=== PATIENT | female | born 1990 | race Caucasian/White ===

== ENCOUNTER 2021-04-18 08:00 | Outpatient (CLI) | payer OTHER ==
[2021-04-18 16:14] LABS: MUDS CUTOFF CONCENTRATIONS CUTOFF CONC BELOW:
[2021-04-18 16:26] LABS: BILIRUBIN,URINE NEGATIVE (NEGATIVE); GLUCOSE, URINE (UA) NEGATIVE (NEGATIVE); KETONES,URINE (UA) NEGATIVE (NEGATIVE); LEUKOCYTE ESTERASE, URINE TRACE (NEGATIVE); NITRITE,URINE NEGATIVE (NEGATIVE); OCCULT BLOOD,URINE NEGATIVE (NEGATIVE); PH,URINE 6.5 PH (5.0-7.5); PROTEIN,URINE NEGATIVE (NEGATIVE); UROBILINOGEN,URINE 0.2 (NORMAL) E.U./dL (NORMAL)
[2021-04-18 16:31] LABS: CLARITY,URINE CLEAR (CLEAR)
[2021-04-18 16:46] LABS: BACTERIA,URINE Few /HPF (None Seen); RBC,URINE 0-5 /HPF (0-5); SQUAMOUS EPITHELIAL CELL,UR FEW Squamous (<= Few); WBC,URINE 0-3 /HPF (0-5)
[2021-04-18 16:57] LABS: AMPHETAMINE SCREEN,URINE NEGATIVE (NEGATIVE); BARBITURATE SCREEN,UR NEGATIVE (NEGATIVE); BENZODIAZEPINES SCREEN, URINE NEGATIVE (NEGATIVE); COCAINE SCREEN URINE NEGATIVE (NEGATIVE); METHADONE SCREEN, URINE NEGATIVE (NEGATIVE); METHAMPHETAMINES SCREEN, URINE NEGATIVE (NEGATIVE); OPIATE SCREEN, URINE NEGATIVE (NEGATIVE); OXYCODONE SCREEN, URINE NEGATIVE (NEGATIVE); PROPOXYPHENE SCREEN, URINE NEGATIVE (NEGATIVE); THC CANNABINOID SCREEN, URINE NEGATIVE (NEGATIVE); TRICYCLIC ANTIDEPRESSANT,URINE NEGATIVE (NEGATIVE)
== END 2021-04-18 23:59 | disposition home or self-care (01) ==
LOC: LAB.WC 08:00
PROVIDERS: ATTEND Nurse Practitioner Obstetrics & Gynecology
DX: Z32.01 Encounter for pregnancy test, result positive (principal)
CPT/HCPCS: 80306; 81001; 87086

== ENCOUNTER 2021-04-29 07:58 | Outpatient (CLI) | payer OTHER ==
--- NOTE | 2021-04-29 14:31 | Ultrasound Report ---
PROCEDURE: OB First Trimester INDICATIONS: +PREG TEST OUTSIDE/PRIOR DATING DATA: Last menstrual period (LMP): 01/29/2021. LMP-based estimated date of delivery (ARIEL): 11/05/2021. First dating scan (date and location): 04/29/2021, [facility]. Estimated date of delivery (ARIEL) from first dating scan: 10/31/2021 The below data below was generated using the ultrasound ARIEL of 10/31/2021 TECHNIQUE: Real-time scanning was performed of the fetus and maternal pelvic organs, with image documentation. COMPARISON: None FINDINGS: Single living and the first trimester/beginning of second trimester intrauterine without evidence of complications. Embryo: [place]-rump length measures 7.8 cm, 13 weeks 4 days. Heart rate: 160 bpm Measurement variability in dating: +/- 4 weeks by LMP, +/- 7 days by mean sac diameter (use before 6 weeks gestation if crown-rump length not able to be measured), +/- 5 days by crown-rump length (6-12 weeks gestation). Maternal organs: There is a right ovarian corpus luteum. IMPRESSION: Living intrauterine measuring 13 weeks 4 days Reviewed by: Kevin Cochran MD on 04/29/2021 1:30 PM [facility] Approved by: Kevin Cochran MD on 04/29/2021 1:30 PM [facility] Station ID: [id number]
== END 2021-04-29 07:59 | disposition home or self-care (01) ==
LOC: DI 07:58
PROVIDERS: ATTEND Nurse Practitioner Obstetrics & Gynecology
DX: Z36.89 Encounter for other specified antenatal screening (principal); Z32.01 Encounter for pregnancy test, result positive

== ENCOUNTER 2021-05-06 09:47 | Outpatient (CLI) | payer OTHER ==
[2021-05-06 10:20] LABS: BASOPHILS % (AUTO) 0.2 %; EOSINOPHILS % (AUTO) 0.2 %; HCT - HEMATOCRIT 39.3 % (37.0-47.0); HGB - HEMOGLOBIN 13.3 g/dL (12.0-16.0); LYMPHOCYTES # (AUTO) 1.9 10^3/uL (1.5-3.5); LYMPHOCYTES % (AUTO) 15.7 %; MEAN CORPUSCULAR HEMOGLOBIN 30.9 pg (27.0-31.0); MEAN CORPUSCULAR HGB CONC 33.8 g/dL (32.0-36.0); MEAN CORPUSCULAR VOLUME 91.2 fL (81.0-99.0); MEAN PLATELET VOLUME 9.1 fL (7.9-10.8); MONOCYTES # (AUTO) 0.4 10^3/uL (0.0-1.0); MONOCYTES % (AUTO) 3.1 %; NEUTROPHILS # (AUTO) 9.7 10^3/uL (1.5-6.6); NEUTROPHILS % (AUTO) 80.3 %; PLT - PLATELET COUNT 315 10^3/uL (130-450); RED BLOOD COUNT 4.31 10^6/uL (4.20-5.40); RED CELL DISTRIBUTION WIDTH 13.5 % (12.0-15.0); WHITE BLOOD COUNT 12.1 x10^3/uL (4.8-10.8)
[2021-05-08 13:52] LABS: HIV AG/AB 4TH GEN NON-REACTIVE (NON-REACTIVE)
[2021-05-08 15:25] LABS: HEPATITIS B SURFACE ANTIGEN NON-REACTIVE (NON-REACTIVE); HEPATITIS C ANTIBODY NON-REACTIVE (NON-REACTIVE)
== END 2021-05-06 09:48 | disposition home or self-care (01) ==
LOC: LAB 09:47
PROVIDERS: ATTEND Nurse Practitioner Obstetrics & Gynecology
DX: Z32.01 Encounter for pregnancy test, result positive (principal); Z36.89 Encounter for other specified antenatal screening
CPT/HCPCS: 36415; 85025; 86592; 86762; 86787; 86803; 86850; 86900; 86901; 87340; 87389

== ENCOUNTER 2021-06-13 09:21 | Outpatient (CLI) | payer OTHER ==
[2021-06-15 03:26] LABS: AFP MOM 1.08; AGE RISK DOWN SYNDROME 1 IN 828; CALC'D GESTATIONAL AGE 19.3 weeks; CIGARETTE SMOKER? NOT GIVEN; DONOR AGE: EGG RETRIEVAL NOT GIVEN; DONOR EGG NO; ESTRIOL MOM 1.24; HCG MOM 1.14; HX OF NEURAL TUBE DEFECTS NO; INHIBIN A MOM 1.03; INSULIN DEPEND DIABETIC NO; MATERNAL WEIGHT 157 lbs; MSS DOWN SYNDROME RISK <1 IN 5000; MSS3 TRISOMY 18 RISK <1 IN 5000; NUMBER OF FETUSES 1; PREV PREGNANCY DOWN SYND NO; RISK FOR ONTD 1 IN 2839
== END 2021-06-13 09:22 | disposition home or self-care (01) ==
LOC: LAB 09:21
PROVIDERS: ATTEND Advanced Practice Midwife
DX: Z34.90 Encounter for supervision of normal pregnancy, unspecified, unspecified trimester (principal); Z36.0 Encounter for antenatal screening for chromosomal anomalies
CPT/HCPCS: 36415; 81511

== ENCOUNTER 2021-06-19 15:24 | Outpatient (CLI) | payer OTHER ==
--- NOTE | 2021-06-19 19:11 | Ultrasound Report ---
PROCEDURE: OB Detailed Eval INDICATIONS: SUPERVISION OF OUTSIDE/PRIOR DATING DATA: Last menstrual period (LMP): 01/29/2021. LMP-based estimated date of delivery (ARIEL): 11/05/2021. First dating scan (date and location): 04/29/2021. Estimated date of delivery (ARIEL) from first dating scan: 10/31/2021. The below data below was generated using the ultrasound ARIEL of 10/31/2021 TECHNIQUE: Real-time scanning was performed of the fetus, with image documentation and biometric measurements. Endovaginal scanning: Not performed. COMPARISON: 04/29/2021. FINDINGS: General: A single living intrauterine gestation is present. Presentation: Vertex Placenta: Placental position is anterior, without previa. Amniotic fluid index: 13.6 cm, normal for gestational age. Largest pocket 4.1 cm. heart rate: 145 beats per minute. Maternal cervical canal: 3.9 cm long; normal length is 2.5 cm or more. biometrics: Biparietal diameter: 5. 1 cm, 21 weeks 2 days Head circumference: 19 cm, 21 weeks 2 days Abdominal circumference: 16.8 cm, 21 weeks 6 days Femur length: 3.6 cm, 21 weeks 2 days Estimated gestational age from initial scan: 20 weeks 6 days Composite gestational age from present scan: 21 weeks 1 day Estimated weight and percentile: 433 g, 81st percentile Measurement variability in biometric dating: +/- 10 days from 12-20 weeks gestation, +/- 2 weeks from 20-30 weeks gestation, +/- 3 weeks at 30 weeks gestation or later. Anatomic survey: Neuro: Ventricles are normal at less than 10 mm. Cisterna magna is normal at 3-11 mm. Cerebellum i s normal in size and morphology. Nuchal skin fold: Normal at less than 6 mm between 14 and 20 weeks gestational age. Face: Face, lips, orbits are within normal limits. The profiles is not well seen. Spine: No evidence for spina bifida. Heart: 4-chambered heart is present. Normal LVOT. RVOT suboptimally visualized.. Diaphragm: Diaphragm is intact. Stomach: Left-sided stomach is present. Kidneys: Minimal pelviectasis. 4.2 mm on the right and 3.9 mm on the left. Normal is less than 5 mm in 2nd trimester, less than 7 mm in 3rd trimester. Cord: 3 vessel cord has orthotopic insertion. Bladder: Normal in size. Extremities: All 4 extremities are visualized. IMPRESSION: 1. Mancera living intrauterine at 21 weeks 1 day based on today's ultrasound. This is con cordant with the first trimester ultrasound. There is expected interval growth. Fetus is in the 81st percentile for weight. 2. Normal placenta and amniotic fluid. 3. profile is not well seen. RVOT is not well seen. Minimal prominence of the renal pelvi ses. Otherwise normal anatomic survey. Follow-up OB ultrasound is recommended. Reviewed by: Marcelino Barnhart MD on 06/19/2021 7:10 PM PDT Approved by: Marcelino Barnhart MD on 06/19/2021 7:10 PM PDT Station ID: [id number]
== END 2021-06-19 15:25 | disposition home or self-care (01) ==
LOC: DI 15:24
PROVIDERS: ATTEND Advanced Practice Midwife
DX: Z34.02 Encounter for supervision of normal first pregnancy, second trimester (principal)

== ENCOUNTER 2021-07-21 15:02 | Outpatient (CLI) | payer OTHER ==
--- NOTE | 2021-07-21 17:30 | Ultrasound Report ---
PROCEDURE: OB F/U or Repeat INDICATIONS: SUPERVISION OF OUTSIDE/PRIOR DATING DATA: Last menstrual period (LMP): 01/29/2021. LMP-based estimated date of delivery (ARIEL): 11/05/2021. First dating scan (date and location): 04/29/2021. Estimated date of delivery (ARIEL) from first dating scan: 10/31/2021. The below data below was generated using the ARIEL of 10/31/2021 TECHNIQUE: Real-time scanning was performed of the fetus, with image documentation and biometric measurements. Endovaginal scanning: No COMPARISON: Prior OB ultrasound dated 06/19/2021 FINDINGS: General: A single living intrauterine gestation is present. Presentation: Vertex Placenta: Placental position is anterior, without previa. Amniotic fluid index: 18.6 cm, normal for gestational age. heart rate: 150 beats per minute. Maternal cervical canal: 4.4 cm long; normal length is 2.5 cm or more. Estimated gestational age from initial scan: 25 weeks 3 days Normal appearance of the facial profile, RVOT and the kidneys. IMPRESSION: Single living IUP redemonstrated in today's exam demonstrating normal appearance of the facial profile, RVT and kidneys. Reviewed by: JARETT Blandon on 07/21/2021 5:28 PM PDT Approved by: Tomas Ramsay MD on 07/21/2021 5:28 PM PDT Station ID: [id number]
== END 2021-07-21 15:03 | disposition home or self-care (01) ==
LOC: DI 15:02
PROVIDERS: ATTEND Advanced Practice Midwife
DX: Z34.92 Encounter for supervision of normal pregnancy, unspecified, second trimester (principal); Z3A.25 25 weeks gestation of pregnancy; Z01.84 Encounter for antibody response examination; G43.909 Migraine, unspecified, not intractable, without status migrainosus; Z86.16 Personal history of COVID-19
CPT/HCPCS: 82306; 86769

== ENCOUNTER 2021-07-21 15:07 | Outpatient (CLI) | payer OTHER | END 2021-07-21 15:08 | disposition home or self-care (01) | LOC: LAB 15:07 | PROVIDERS: ATTEND Nurse Practitioner Obstetrics & Gynecology | DX: Z01.84 Encounter for antibody response examination (principal); G43.909 Migraine, unspecified, not intractable, without status migrainosus; Z86.16 Personal history of COVID-19 | CPT/HCPCS: 82306; 86769 ==

== ENCOUNTER 2021-08-04 08:20 | Outpatient (CLI) | payer OTHER ==
[2021-08-04 09:44] LABS: HCT - HEMATOCRIT 33.9 % (37.0-47.0); HGB - HEMOGLOBIN 11.1 g/dL (12.0-16.0); MEAN CORPUSCULAR HEMOGLOBIN 31.4 pg (27.0-31.0); MEAN CORPUSCULAR HGB CONC 32.7 g/dL (32.0-36.0); MEAN CORPUSCULAR VOLUME 95.8 fL (81.0-99.0); MEAN PLATELET VOLUME 8.8 fL (7.9-10.8); RED BLOOD COUNT 3.54 10^6/uL (4.20-5.40); RED CELL DISTRIBUTION WIDTH 13.5 % (12.0-15.0); WHITE BLOOD COUNT 12.2 x10^3/uL (4.8-10.8)
[2021-08-04 09:51] LABS: POTASSIUM 3.7 mmol/L (3.5-5.0)
== END 2021-08-04 08:21 | disposition home or self-care (01) ==
LOC: LAB 08:20
PROVIDERS: ATTEND Nurse Practitioner Obstetrics & Gynecology
DX: Z01.84 Encounter for antibody response examination (principal); O99.350 Diseases of the nervous system complicating pregnancy, unspecified trimester; G43.909 Migraine, unspecified, not intractable, without status migrainosus; Z36.0 Encounter for antenatal screening for chromosomal anomalies; Z86.16 Personal history of COVID-19
CPT/HCPCS: 36415; 80051; 82306; 82950; 85027; 86769

== ENCOUNTER 2021-09-19 11:20 | Outpatient (CLI) | payer OTHER ==
[2021-09-19 11:54] VITALS: BP 112/88
[2021-09-19 13:04] LABS: BILIRUBIN,URINE NEGATIVE (NEGATIVE); GLUCOSE, URINE (UA) NEGATIVE (NEGATIVE); KETONES,URINE (UA) 15 mg/dL (NEGATIVE); LEUKOCYTE ESTERASE, URINE NEGATIVE (NEGATIVE); NITRITE,URINE NEGATIVE (NEGATIVE); OCCULT BLOOD,URINE NEGATIVE (NEGATIVE); PH,URINE 5.5 PH (5.0-7.5); PROTEIN,URINE NEGATIVE (NEGATIVE); UROBILINOGEN,URINE 0.2 (NORMAL) E.U./dL (NORMAL)
[2021-09-19 13:14] LABS: CLARITY,URINE CLEAR (CLEAR); RBC,URINE 0-5 /HPF (0-5); WBC,URINE 0-3 /HPF (0-5)
[2021-09-19 13:15] LABS: BACTERIA,URINE Few /HPF (None Seen); SQUAMOUS EPITHELIAL CELL,UR RARE Squamous (<= Few)
--- NOTE | 2021-09-19 13:18 | Ultrasound Report ---
PROCEDURE: OB Limited, ultrasound INDICATIONS: contractions OUTSIDE/PRIOR DATING DATA: Last menstrual period (LMP): 01/29/2021. LMP-based estimated date of delivery (ARIEL): 11/05/2021. First dating scan (date and location): 04/29/2021. Estimated date of delivery (ARIEL) from first dating scan: 10/31/2021. TECHNIQUE: Transabdominal transvaginal Real-time scanning was performed of the fetus, with image docu mentation. COMPARISON: 07/21/2021 FINDINGS: A single living intrauterine gestation is present. Presentation: Vertex Placenta: Placental position is anterior, without previa. Amniotic fluid index: 23.1 cm, normal for gestational age. Largest vertical pocket 6.4 cm heart rate: 133 beats per minutes. Maternal cervical canal: 4.9 cm long; normal length is 2.5 cm or more. Estimated gestational age from initial scan: 34 week 0 day. Chest/diaphragm, stomach/abdomen, bilateral kidneys and urinary bladder/pelvis all were well visualiz ed and appear normal. IMPRESSION: 1. Single live intrauterine consistent with 34 week 0 day gestation. 2. Visualized anatomy within normal limits. Reviewed by: Drew Dumont MD on 09/19/2021 12:17 PM [facility] Approved by: Drew Dumont MD on 09/19/2021 12:17 PM [facility] Station ID: [id number]
--- NOTE | 2021-09-19 13:19 | Ultrasound Report ---
PROCEDURE: OB Transvaginal INDICATIONS: contractions Last menstrual period (LMP): 01/29/2021. LMP-based estimated date of delivery (ARIEL): 11/05/2021. First dating scan (date and location): 04/29/2021. Estimated date of delivery (ARIEL) from first dating scan: 10/31/2021. TECHNIQUE: Transabdominal transvaginal Real-time scanning was performed of the fetus, with image docu mentation. COMPARISON: 07/21/2021 FINDINGS: A single living intrauterine gestation is present. Presentation: Vertex Placenta: Placental position is anterior, without previa. Amniotic fluid index: 23.1 cm, normal for gestational age. Largest vertical pocket 6.4 cm heart rate: 133 beats per minutes. Maternal cervical canal: 4.9 cm long; normal length is 2.5 cm or more. Estimated gestational age from initial scan: 34 week 0 day. Chest/diaphragm, stomach/abdomen, bilateral kidneys and urinary bladder/pelvis all were well visualiz ed and appear normal. IMPRESSION: 1. Single live intrauterine consistent with 34 week 0 day gestation. 2. Visualized anatomy within normal limits. Reviewed by: Drew Dumont MD on 09/19/2021 12:17 PM [facility] Approved by: Drew Dumont MD on 09/19/2021 12:17 PM [facility] Station ID: [id number]
[2021-09-19 13:27] LABS: RUPTURE OF MEMBRANES PLUS NEGATIVE (NEGATIVE)
[2021-09-19 14:51] LABS: BACTERIAL VAGINOSIS DNA NEGATIVE (NEGATIVE); CANDIDA GLABRATA DNA NEGATIVE (NEGATIVE); CANDIDA GROUP DNA NEGATIVE (NEGATIVE); CANDIDA KRUSEI DNA NEGATIVE (NEGATIVE); TRICHOMONAS VAGINALIS DNA NEGATIVE (NEGATIVE)
--- NOTE | 2021-09-19 15:37 | PROVIDER PROGRESS NOTE ---
- HPI Chief Complaint: Labor Current : Vital Signs Temperature 36.8 C 09/19/21 11:45 Heart Rate 98 09/19/21 11:45 Respiratory Rate 16 09/19/21 11:45 Blood Pressure 112/88 H 09/19/21 11:45 Temperature 36.8 C 09/19/21 11:53 Heart Rate 98 09/19/21 11:53 Respiratory Rate 16 09/19/21 11:53 Blood Pressure 112/88 H 09/19/21 11:53 O2 Saturation 100 09/19/21 11:53 - Procedures OB Procedure Performed: NST Diagnosis/Indication for NST: labor - Plan Plan: Maya presents to [facility] @ 33.2wks gestation by LMP c/w 13.4wk U/S as directed from her routine office visit secondary to contractions and vaginal leakage of fluid. She rates her contractions 4/10 on a pain scale. Feels adequately hydrated. No intercourse in the past 24 hours and is currently out of town which is contributing to some of her anxiety. NST performed 09/19/2021 NST read 09/19/2021 NST reactive. FHR baseline 140s, moderate variability, + accels, no decels Contractions every 3-5 minutes initially but spaced to every 8-10 minutes. Palpate mild at present. FFN - negative ROM plus - negative AFFIRM - negative UA - negative GBS collected - pending KALEIGH 23.1cm, largest vertical pocket 6.4cm Transvaginal cervical length assessment 4.9cm SVE closed/thick/high, posterior. Repeat SVE x 3 hours - unchanged. Assessment: 30yo @ 33.2wks gestation by LMP c/w 13.4wk U/S contractions Increased vaginal discharge FHR Category I Plan: Pt released home with precautions. Has emergency contact information. Reviewed when to present and warning s/sx. Repeat KALEIGH in 2 weeks and develop further plan of care PRN. Pt verbalized understanding and agrees to above plan. She denies further questions or concerns at this time. FINAL DIAGNOSIS: False labor <37wks gestation
== END 2021-09-19 17:10 | disposition home or self-care (01) ==
LOC: WFO 11:20 → OBS 11:22 → FBP 11:37 → WFO 17:10
PROVIDERS: ATTEND Nurse Practitioner Obstetrics & Gynecology
DX: O47.03 False labor before 37 completed weeks of gestation, third trimester (principal); Z3A.33 33 weeks gestation of pregnancy
CPT/HCPCS: 36415; 59025; 81001; 82731; 84112; 87081; 87086; 87661; 87797; 87801; 99215

== ENCOUNTER 2021-10-10 08:00 | Outpatient (CLI) | payer OTHER | END 2021-10-10 23:59 | disposition home or self-care (01) | LOC: LAB 08:00 | PROVIDERS: ATTEND Nurse Practitioner Obstetrics & Gynecology | DX: Z36.85 Encounter for antenatal screening for Streptococcus B (principal) | CPT/HCPCS: 87797 ==

== ENCOUNTER 2021-10-11 15:49 | Outpatient (CLI) | payer OTHER ==
--- NOTE | 2021-10-11 17:05 | Ultrasound Report ---
PROCEDURE: OB Limited INDICATIONS: FALSE LABOR BEFORE 37 WEEKS OUTSIDE/PRIOR DATING DATA: Last menstrual period (LMP): 01/29/2021. LMP-based estimated date of delivery (ARIEL): 11/05/2021. First dating scan (date and location): 04/29/2021. Estimated date of delivery (ARIEL) from first dating scan: 10/31/2021. The below data below was generated using the ultrasound ARIEL of 10/31/2022 TECHNIQUE: Real-time scanning was performed of the fetus, with image documentation. Endovaginal scanning: Not performed COMPARISON: 09/19/2021 FINDINGS: A single living intrauterine gestation is present. Presentation: Vertex Placenta: Placental position is anterior, without previa. Amniotic fluid index: 19.7 cm, within normal limits for gestational age. heart rate: 133 beats per minutes. Maternal cervical canal: 6.27 cm long; normal length is 2.5 cm or more. Estimated gestational age from initial scan: 37 weeks 1 day. IMPRESSION: 1. Cervix is long and closed. 2. V late third trimester intrauterine . Reviewed by: Kevin Cochran MD on 10/11/2021 5:04 PM PST Approved by: Kevin Cochran MD on 10/11/2021 5:04 PM PST Station ID: [id number]
== END 2021-10-11 15:50 | disposition home or self-care (01) ==
LOC: DI 15:49
PROVIDERS: ATTEND Nurse Practitioner Obstetrics & Gynecology
DX: O47.03 False labor before 37 completed weeks of gestation, third trimester (principal); Z3A.37 37 weeks gestation of pregnancy

== ENCOUNTER 2021-10-24 23:14 | Inpatient (IN) | payer OTHER ==
[2021-10-25] MEDS ORDERED: OXYTOCIN/SODIUM CHLORIDE 500 ML IV PRN (00:18)
[2021-10-25] MEDS ORDERED: OXYTOCIN 10 UNIT/ML VIAL IM PRN (00:18)
[2021-10-25] MEDS ORDERED: CARBOPROST TROMETHAMINE 250 MCG/ML AMP IM PRN (00:18)
[2021-10-25] MEDS ORDERED: TRANEXAMIC ACID IN NACL 1,000 MG/100 ML BAG IV PRN (00:18)
[2021-10-25] MEDS ORDERED: SODIUM CHLORIDE FLUSH 0.9% 10 ML SYRINGE IVP PRN (00:18)
[2021-10-25] MEDS ORDERED: TERBUTALINE 1 MG/ML VIAL SUBQ PRN (00:18)
[2021-10-25] MEDS ORDERED: fentaNYL 100 MCG/2 ML VIAL IVP PRN (00:18)
[2021-10-25] MEDS ORDERED: miSOPROStoL 200 MCG TABLET PR ONE (00:18)
[2021-10-25] MEDS ORDERED: LIDOCAINE-MPF 1% 30 ML VIAL ID PRN (00:18)
[2021-10-25] MEDS ORDERED: miSOPROStoL 200 MCG TABLET BC ONE (00:18)
[2021-10-25] MEDS ORDERED: METHYLERGONOVINE 0.2 MG/ML VIAL IM PRN (00:18)
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
[2021-10-25 00:58] LABS: BASOPHILS % (AUTO) 0.3 %; EOSINOPHILS % (AUTO) 0.3 %; HCT - HEMATOCRIT 33.7 % (37.0-47.0); HGB - HEMOGLOBIN 10.9 g/dL (12.0-16.0); LYMPHOCYTES % (AUTO) 14.7 %; MEAN CORPUSCULAR HGB CONC 32.3 g/dL (32.0-36.0); MEAN CORPUSCULAR VOLUME 86.6 fL (81.0-99.0); MEAN PLATELET VOLUME 9.8 fL (7.9-10.8); MONOCYTES # (AUTO) 0.6 10^3/uL (0.0-1.0); MONOCYTES % (AUTO) 4.3 %; NEUTROPHILS # (AUTO) 10.7 10^3/uL (1.5-6.6); NEUTROPHILS % (AUTO) 79.4 %; PLT - PLATELET COUNT 335 10^3/uL (130-450); RED BLOOD COUNT 3.89 10^6/uL (4.20-5.40); RED CELL DISTRIBUTION WIDTH 13.5 % (12.0-15.0); WHITE BLOOD COUNT 13.5 x10^3/uL (4.8-10.8)
[2021-10-25] MEDS ORDERED: SODIUM CHLORIDE FLUSH 0.9% 10 ML SYRINGE IVP SCH (01:00)
[2021-10-25] MEDS ORDERED: LACTATED RINGERS 1,000 ML ONE (03:09)
[2021-10-25] MEDS: LACTATED RINGERS 1,000 ML IV SCH ×2 (04:30→06:48)
[2021-10-25] MEDS ORDERED: OXYTOCIN/SODIUM CHLORIDE 500 ML IV SCH (04:30)
[2021-10-25] MEDS ORDERED: ROPIVACAINE 0.2% 200 MG/100 ML BAG EP PRN ×2 (06:03→14:31)
[2021-10-25] MEDS ORDERED: ROPIVACAINE 0.2% 200 MG/100 ML BAG EP ONE (06:03)
[2021-10-25] MEDS ORDERED: NALOXONE 0.4 MG/ML VIAL IVP PRN (06:03)
[2021-10-25] MEDS ORDERED: ePHEDrine 50 MG/ML VIAL IVP PRN (06:03)
--- NOTE | 2021-10-25 06:03 | ANESTHESIA ---
Pre-Anesthesia VS, & Labs - Diagnosis Active labor - Procedure vaginal delivery Vital Signs: Temp Pulse Resp BP Pulse Ox 36.8 C 107 H 18 126/89 H 100 10/25/21 00:14 10/24/21 23:25 10/24/21 23:25 10/24/21 23:25 10/24/21 23:25 Height: 5 ft 4 in Weight (kg): 81.647 kg Body Mass Index: 30.9 BMI Classification: Obese - NPO Last Fluid Intake: clear liquids - Is Patient ?: Yes - Lab Results Current Lab Results: Laboratory Tests 10/25/21 00:28: Blood Type O POSITIVE, Antibody Screen NEGATIVE 10/25/21 00:28: WBC 13.5 H, RBC 3.89 L, Hgb 10.9 L, Hct 33.7 L, MCV 86.6, MCH 28.0, MCHC 32.3, RDW 13.5, Plt Count 335, MPV 9.8, Neut # (Auto) 10.7 H, Lymph # (Auto) 2.0, [place] # (Auto) 0.6, Eos # (Auto) 0.0, Baso # (Auto) 0.0, Absolute Nucleated RBC 0.00, Nucleated RBC % 0.0 Fish Bones: 10/25/21 00:28 Home Medications and Allergies Active Medications Carboprost Tromethamine (Carboprost Tromethamine 250 Mcg/Ml Amp) 250 mcg IM ONCE PRN PRN Reason: Hemorrhage Stop: 10/26/21 00:17 Fentanyl (Fentanyl 100 Mcg/2 Ml Vial) 50 mcg IVP Q1H PRN PRN Reason: Severe Pain (score 7-10) Oxytocin/Sodium Chloride (Pitocin/Sodium Chloride) 500 mls @ 999 mls/hr IV PRN PRN; Protocol PRN Reason: POST- HEMORR PREVENTION Tranexamic Acid (Tranexamic 1,000 Mg/100ml-Nacl) 1,000 mg in 100 mls @ 600 mls/hr IV Q30M PRN PRN Reason: EBL >1200mL and within 3hr Oxytocin/Sodium Chloride (Pitocin/Sodium Chloride) 500 mls @ 1 mls/hr IV TITR PROSPER; Protocol Lactated Ringer's (Lr) 1,000 mls @ 100 mls/hr IV .Q10H PROSPER Lidocaine HCl (Lidocaine-Mpf 1% 30 Ml Vial) 30 ml ID ONCE PRN PRN Reason: PERINEAL REPAIR Stop: 10/26/21 00:19 Methylergonovine Maleate (Methylergonovine 0.2 Mg/Ml Vial) 0.2 mg IM ONCE PRN PRN Reason: Hemorrhage Stop: 10/26/21 00:17 Oxytocin (Oxytocin 10 Unit/Ml Vial) 10 unit IM ONCE PRN PRN Reason: Step One if no IV access. Stop: 10/26/21 00:17 Sodium Chloride (Sodium Chloride Flush 0.9% 10 Ml Syringe) 10 ml IVP PRN PRN PRN Reason: NEEDED PER PROVIDER ORDERS Sodium Chloride (Sodium Chloride Flush 0.9% 10 Ml Syringe) 10 ml IVP Q8H PROSPER Terbutaline Sulfate (Terbutaline 1 Mg/Ml Vial) 0.25 mg SUBQ ONCE PRN PRN Reason: Tachystole Stop: 10/26/21 00:17 Allergies/Adverse Reactions: Allergies Allergy/AdvReac Type Severity Reaction Status Date / Time No Known Drug Allergies Allergy Verified 10/25/21 00:20 Anes History & Medical History - Anesthetic History Anesthesia Complications: reports: No previous complications - Medical History Cardiovascular: reports: None Pulmonary: reports: None Gastrointestinal: reports: GERD Urinary: reports: None Neuro: reports: None Musculoskeletal: reports: None Endocrine/Autoimmune: reports: None Blood Disorders: reports: None Skin: reports: None Smoking Status: Never smoker Psychosocial: reports: Depression, Anxiety History of Cancer?: No - Surgical History Eyes Ears Nose Throat (EENT): reports: Other (septoplasty) - Obstetrical History : 1 Parity: 0 Events: reports: None Complications: reports: None Exam General: Alert, Oriented x3, Cooperative, No acute distress Dental: WNL Mouth Openin Fingerbreadth Neck Mobility: Normal Mallampati classification: II Thyromental Distance: 4-6 cm Mental/Cognitive Status: Alert/Oriented X3, Normal for patient Plan Anesthesia Type: Epidural Consent for Procedure(s) Verified and Reviewed: Yes Code Status: Attempt Resuscitation ASA classification: 2-Mild systemic disease Is this case an emergency?: No
[2021-10-25] MEDS: ONDANSETRON 4 MG/2 ML VIAL IVP PRN ×2 (09:15→18:05)
--- NOTE | 2021-10-25 09:55 | PROVIDER PROGRESS NOTE ---
Labor Progress Note - Uterine Monitoring Uterine Monitoring Mode: positive: External toco Contraction Frequency (min/apart): 2-4 Contraction Intensity: positive: Moderate Uterine Resting Tone: positive: Soft - Monitoring Monitor Mode: positive: External ultrasound Heart Rate Baseline: 130 Heart Rate Variability: positive: Moderate (6-25 bmp) Accelerations: positive: Present, 15x15 Decelerations: positive: None Strip Review: positive: Category I - Vaginal Exam Dilation (in cm): 3 Effacement (%): 70 Station: -2 Cervical Position: Posterior - Labor Progress Note Labor Progress Note/Additional Text: S: Feeling comfortable with epidural. Was not able to sleep at all last night so both she and her are looking forward to a nap now. Otherwise doing well and her mood is good. O: FHR baseline 130, moderate variability, + accels, no decels Contractions palpate moderate every 2-4 minutes with soft resting tone Last SVE 3/70/-2, Vertex SROM x 11hrs A: 30yo @ 38.3wks by LMP c/w 13wk U/S GBS neg FHR Category I P: Continue pitocin for labor augmentation with titration per protocol Maintain epidural for pain management. Encouraged position changes in bed with peanut ball. Continuous monitoring. Anticipate .
[2021-10-25] MEDS ORDERED: fentaNYL 100 MCG/2 ML VIAL ONE (12:14)
[2021-10-25] MEDS ORDERED: LIDOCAINE-MPF 2% 5 ML VIAL ONE (12:14)
[2021-10-25] MEDS ORDERED: SODIUM CHLORIDE 0.9% 10 ML VIAL IVP ONE (12:14)
--- NOTE | 2021-10-25 12:26 | CONSULTATION NOTE ---
Consultation Report: Called for new pain with contractions after 6 hours of epidural. Sensory level assessed at L1. Bolus with 100mcg fentanyl, 5cc 2% Liod and 5 cc NS. Pt states contraction pain has resolved after 5 mins.
--- NOTE | 2021-10-25 14:34 | CONSULTATION NOTE ---
Consultation Report: Called as patient complaining of pain on left side. Laying on left side, Ropivicaine 0.5% 10 cc given via epidural and pump settings changed as ordered. Patient had relief in 10 minutes, VSS.
[2021-10-25] MEDS ORDERED: diphenhydrAMINE INJ 50 MG/ML VIAL IVP SCH (14:40)
[2021-10-25] MEDS ORDERED: ROPIVACAINE 0.5% PF 20 ML AMPULE ONE (14:47)
[2021-10-25] MEDS ORDERED: miSOPROStoL 200 MCG TABLET ONE (17:02)
[2021-10-25] MEDS ORDERED: METHYLERGONOVINE 0.2 MG/ML VIAL ONE (17:02)
[2021-10-25] MEDS ORDERED: CARBOPROST TROMETHAMINE 250 MCG/ML AMP IM ONE (17:02)
[2021-10-25] MEDS ORDERED: HYDROCORTISONE 1% CREAM 28 GM TUBE PR PRN (18:16)
[2021-10-25] MEDS ORDERED: WITCH HAZEL/GLYCERIN 1 PAD TOP PRN (18:16)
--- NOTE | 2021-10-25 18:23 | DELIVERY NOTE ---
Delivery Note - Labor Labor: positive: Spontaneous, Augmented by oxytocin - Delivery Method Delivery Method: positive: Spontaneous vaginal delivery - Presentation Presentation: positive: Vertex, ANITA - left occiput anterior - Nuchal Cord Nuchal Cord: positive: Present, Reduced - Amniotic Fluid Description Amniotic Fluid Description: positive: Clear - Episiotomy Type Episiotomy Type: positive: None - Laceration Laceration: positive: 1st degree, Perineal - Delivery Outcome Delivery Outcome: positive: Livebirth - [place]: positive: Placed in direct skin contact with mother, Bulb syringe, Stimulated, Warmed, [place] used [place] sex: positive: Male - Cord Cord: positive: 3 vessels - Placenta Placenta: positive: Intact, Spontaneous - Estimated Blood Loss Estimated Blood Loss (in cc): 300 - Post Delivery Events Post Delivery Events: positive: No post delivery events - Delivery Comments (Free Text/Narrative) Delivery Comments (Free Text/Narrative): Labor: This 30yo @ 38.2wks gestation by LMP c/w 13wk U/S who presented to [facility] with c/o vaginal leakage of clear fluid at 2230 on 10/24/2021. Cervix was 2/60/-3, posterior, vertex. FHR pattern demonstrated Category I pattern throughout labor. Pitocin initiated for labor augmentation with a maximum titration rate of 14mU/mL. Epidural placed per maternal request. Pt progressed to c/c/+2 @ 1707. : Normal of viable male on 10/25/2021 @ 1742. Nuchal cord x 1 was reduced. The was placed on maternal abdomen, stimulated, dried, and placed skin to skin. 's were 8/9 at 1 and 5 minutes respectively. Pitocin administered via IV for hemostasis. The umbilical cord was allowed to stop pulsating at which time it was doubly clamped by CNM and cut by FOB. Cord blood was obtained. 3VC. Fundal massage and gentle cord traction applied for active management of the third stage. Placenta delivered spontaneously and intact at 1747. EBL 300mL. Fourth stage: Uterine fundus firm and there is no excessive bleeding. The perineum, vagina, and cervix were inspected and found to have a minor 1st degree perineal laceration which was left unrepaired secondary to hemostasis. Skin to skin contact initiated. Family bonding well. Both mother and baby were left in stable condition.
[2021-10-25] MEDS: ACETAMINOPHEN 500 MG TABLET PO SCH (19:51)
[2021-10-25] MEDS: IBUPROFEN 800 MG TABLET PO SCH (21:24)
[2021-10-25] MEDS: DOCUSATE SODIUM 100 MG CAPSULE PO SCH (21:24)
[2021-10-26] MEDS: IBUPROFEN 800 MG TABLET PO SCH ×4 (03:25→19:25)
[2021-10-26] MEDS: ACETAMINOPHEN 500 MG TABLET PO SCH ×2 (05:02→17:18)
[2021-10-26] MEDS: DOCUSATE SODIUM 100 MG CAPSULE PO SCH ×2 (09:30→21:20)
--- NOTE | 2021-10-26 10:05 | PROVIDER PROGRESS NOTE ---
Subjective - Subjective Subjective: S: Bonding well with her baby. with little difficulty - baby seems to get frustrated at times. Bleeding decreasing and is light. Pain well controlled with oral medications. She states the majority of her pain is in her lower back and sacrum but the K-pad has also helped. O: Heart RRR w/o M/G/R, lungs CTAB, abdomen soft and nontender, fundus firm at U-1, bilateral LE's trace edema A: 30yo -->P1 PPD#1 s/p TSVD viable male P: Continue routine pp care and medications Evaluate for discharge home tomorrow. Objective - Vital Signs/Intake & Output Vital Signs: Vital Signs x48h Temp Pulse Pulse Resp BP Pulse Ox 10/26/21 09:20 36.5 C 87 20 127/76 100 10/26/21 03:48 36.6 C 84 18 109/64 99 Intake & Output: Intake & Output 10/23/21 10/24/21 10/25/21 10/26/21 23:59 23:59 23:59 23:59 Intake Total 3236.960 600 Output Total 890 650 Balance 2346.960 -50 - Lab Results Fish Bones: 10/25/21 00:28
[2021-10-27] MEDS: ACETAMINOPHEN 500 MG TABLET PO SCH ×2 (01:20→10:02)
[2021-10-27] MEDS: IBUPROFEN 800 MG TABLET PO SCH ×2 (03:30→11:25)
[2021-10-27 08:19] VITALS: BP 105/62
[2021-10-27] MEDS: DOCUSATE SODIUM 100 MG CAPSULE PO SCH (10:03)
--- NOTE | 2021-10-27 10:29 | Discharge Plan ---
Discharge Plan Problem Reviewed?: Yes Disposition: Home, Self Care Condition: Good Diet: Regular Activity Restrictions: No Restrictions Shower Restrictions: No Driving Restrictions: No Weight Bearing: Full Weight Instruction Topics: Vaginal No Smoking: If you smoke, Please STOP! Call for help. Follow-up with: Selena Varela CNM, ARNP [Provider Admit Priv/Credential] -
--- NOTE | 2021-10-27 10:29 | DISCHARGE SUMMARY ---
Discharge Summary Condition at Discharge: Good Discharge Disposition: 01 Home, Self Care - HOSPITAL COURSE Hospital Course: Date of Admission: 10/25/2021 Date of Discharge: 10/27/2021 Diagnosis on Admission: 1. 30yo @ 38.3wks gestation by LMP c/w 13.4wks U/S 2. SROM 3. GBS neg 4. FHR Category I Diagnosis on Discharge: 1. 30yo PPD#2 s/p TSVD viable male 2. perineum intact 3. 4. normal recovery Brief history: She is a patient of [facility] who presented on 10/25/2021 with c/o vaginal leakage of clear fluid. She was noted to be grossly ruptured. Cervix was 2/60/-3, posterior and vertex. FHR pattern demonstrated Category I pattern throughout labor. Pitocin initiated for labor augmentation with a maximum infusion rate of 14mU/mL. Epidural placed per maternal request. Pt progressed to spontaneously deliver a viable male on 10/25/2021 @ 1742. Apgars were 8/9 at 1 and 5 minutes respectively. EBL 300mL. 1st degree perineal laceration was hemostatic and left unrepaired. She has been doing well in her course. She is ambulating and tolerating a regular diet. She is urinating without difficulty and her lochia is normal. Her pain is well controlled with oral medications. She is with little difficulty. Experiencing some right nipple tenderness and using lanolin with some relief. She is bonding well with her baby and her is supportive at the bedside. She will be discharged home today with instructions to continue her vitamin while and to continue taking ibuprofen and tylenol OTC as needed for pain management. She intends to follow up with myself at [facility] [place] in 1 week for routine visit or sooner if needed. She has been given precautions to call if she has any worsening fevers, chills, abdominal pain, increased vaginal bleeding or foul smelling vaginal lochia. She verbalized understanding and agrees to above plan. She denies further questions or concerns at this time. Physical Exam: Normocephalic, atraumatic, heart RRR w/o M/G/R, lungs CTAB, abdomen soft and nontender with fundus firm and U-2, perineum intact, light lochia rubra, bilateral LE's trace edema, mood is good. - ALLERGIES Allergies/Adverse Reactions: Allergies Allergy/AdvReac Type Severity Reaction Status Date / Time No Known Drug Allergies Allergy Verified 10/25/21 00:20 - LABS Result Diagrams: 10/25/21 00:28
--- NOTE | 2021-10-27 12:29 | Labor Flowsheet ---
Labor Flowsheet Datetime Report Generated by CPN: 10/27/2021 12:29 Datetime: 10/25/2021 20:01 VITAL SIGNS NBP Sys/Chani/Mean (mmHg): 117 : 71 : 80 Pulse: 94 Datetime: 10/25/2021 18:07 Patient Position/Activity: Left Lateral Datetime: 10/25/2021 18:01 Medication Comments: zofran 4mg Datetime: 10/25/2021 17:56 Hygiene: Arlette Care; Gown Changed Datetime: 10/25/2021 17:50 Patient Care Comments: 1st degree unrepaired Datetime: 10/25/2021 17:45 Stage of : Recovery Datetime: 10/25/2021 17:42 ASSESSMENT A Monitor Mode: External US FHR Baseline Changes: No Baseline Change Variability: Moderate 6-25 bpm Accelerations: 15X15 Decelerations: Late Actions for Decelerations: Sterile Vaginal Exam; Provider Notified Category: Category II Comments: head stim, progress with pushing, male born [birth year] Datetime: 10/25/2021 17:15 FHR Baseline Rate : 150 Datetime: 10/25/2021 17:07 VAGINAL EXAM Dilatation (cm): 10.0 Effacement (%): 100 Station: 2 Exam by: Benedict Dupreer Datetime: 10/25/2021 17:06 COMMUNICATION Communication: Provider at Bedside Datetime: 10/25/2021 17:02 LaborFlag: Labor Datetime: 10/25/2021 17:00 Frequency (min): 2-3.5 Duration (sec): 40-60 Datetime: 10/25/2021 16:45 UTERINE ACTIVITY Monitor Mode: External Quality: Strong Pattern: Normal: <= 5 Contractions in 10 Minutes Resting Tone (Palpate): Relaxed Communication Comments: pt. feeling urge to push and pressure. CNM will be over to assess. Datetime: 10/25/2021 16:28 Monitor Interventions for UA: [place] Adjusted Datetime: 10/25/2021 16:20 Vaginal Bleeding: Normal Show Cervix, Consistency: Soft Vaginal Exam Comments: cervix anteriorly and cervix felt on right side. Datetime: 10/25/2021 16:08 Temperature (C): 36.8 Datetime: 10/25/2021 16:00 Anesthesia Level Check: T9 Datetime: 10/25/2021 15:57 Pain Coping: Sleeping Datetime: 10/25/2021 15:54 Pitocin Checklist: At Least 1 Acceleration of 15 bpm x 15 Seconds in 30 Minutes or Adequate Variabi lity; No More than 1 Late Deceleration Occurred in Past 30 Minutes; No More than 2 Variable Decelerat ions > 60 Seconds in Duration and decreasing >60 bpm in 30 minutes; No More than 5 Uterine Contractio ns in 10 Minutes for any 20 Minute Interval; Uterus Palpates Soft between Contractions MEDICATIONS Pitocin (milliunits): Increased to @ 14 Datetime: 10/25/2021 15:00 Anesthesia Comments: 0/10 Datetime: 10/25/2021 14:50 SpO2 (%): 100 Datetime: 10/25/2021 14:25 PAIN Pain Scale: 0 Pain Presence: None/Denies Datetime: 10/25/2021 13:30 Pain Goal: 9 Datetime: 10/25/2021 13:16 Pain Assessment Comments: will call CNM Datetime: 10/25/2021 11:35 TEACHING Instructional Method: Verbal Plan of Care: Plan of Care Discussed; Vaginal Delivery; Labor Unit Routine: Monitoring Labor/Induction: Labor Stages; Augmentation Pain Management: Epidural; PRN Medications; Pain Scale/Goals; Comfort Measures Medications: Pitocin Related: Common Discomforts of ; Maternal Physical Changes; Maternal Emotional C hanges; Activity and Rest Teaching Comments: 20min. verbal education Datetime: 10/25/2021 10:12 Monitor Interventions for FHR: Ultrasound Adjusted Datetime: 10/25/2021 09:45 Pain Type: Cramping Pain Location: Abdomen Datetime: 10/25/2021 08:45 Contraction Comments: coupling Datetime: 10/25/2021 07:07 Respirations: 17 Datetime: 10/25/2021 06:56 Cervix, Position: Posterior Datetime: 10/25/2021 06:44 PATIENT CARE IV/Blood Work: New IV Bag Hung; IV Bag Number @ 2 Datetime: 10/25/2021 06:39 I/O Interventions: Melgar Cath Inserted Datetime: 10/25/2021 06:36 Pain Relief Measures: Epidural Given Datetime: 10/25/2021 06:26 MATERNAL ASSESSMENT Nausea/Vomiting: Present Datetime: 10/25/2021 06:25 Epidural Procedure: Completed Epidural Procedure Other: Pump Started Datetime: 10/25/2021 06:06 ANESTHESIA Anesthesia Plans: Epidural Epidural Positioning: Sitting Datetime: 10/25/2021 03:34 Notification Reason: Status Update; Labor Status Datetime: 10/25/2021 03:30 Comfort Measures: Hot Shower/Tub/Spa Datetime: 10/25/2021 03:26 Maternal Comments: L FA IV infiltrated, removed, tip intact Datetime: 10/25/2021 01:17 Temperature Route: Oral
== END 2021-10-27 12:28 | disposition home or self-care (01) | DRG 807 ==
LOC: WFO 23:14 → FBP 23:16 → WFO 10-25 00:18 → FBP 10-25 00:19
PROVIDERS: ADMIT Nurse Practitioner Obstetrics & Gynecology; ATTEND Nurse Practitioner Obstetrics & Gynecology
PROC: 0HQ9XZZ Repair Perineum Skin, External Approach (ICD-10-PCS; principal; 2021-10-25)
PROC: 10E0XZZ Delivery of Products of Conception, External Approach (ICD-10-PCS; 2021-10-25)
DX: O70.0 First degree perineal laceration during delivery (principal); Z37.0 Single live birth; Z3A.38 38 weeks gestation of pregnancy
CPT/HCPCS: 85025; 86850; 86900; 86901; A9270; J1200; J7120; 99215

== ENCOUNTER 2023-05-24 10:42 | Emergency (ER) | payer OTHER ==
[2023-05-24 10:55] VITALS: BP 124/78
--- NOTE | 2023-05-24 11:06 | ED Physician Documentation ---
PD HPI HEENT - Stated complaint Stated Complaint: NOSE PX - Chief complaint Chief Complaint: Trauma Hd/Nk - History obtained from History obtained from: Patient - History of Present Illness Timing - onset: Last night (her child head butted her accidentally in the nose, leading to pain in nose and brief epistaxis. mixer tender and has swelling. Pt concerned about fracture.) Timing - duration: Hours (12) Timing - details: Abrupt onset, Still present Location: Nose Associated symptoms: No: Fever, Congestion, Facial swelling Similar symptoms before: Diagnosis (has had nasal fracture in the past which needed ENT surgery.) Review of Systems Eyes: denies: Loss of vision, Decreased vision Neurologic: denies: Altered mental status, Headache PD PAST MEDICAL HISTORY - Past Medical History Past Medical History: Yes Cardiovascular: None Respiratory: None Neuro: None Endocrine/Autoimmune: None GI: GERD : None Psych: Depression Musculoskeletal: None Derm: None - Past Surgical History Past Surgical History: Yes HEENT: Other - Present Medications Home Medications: Ambulatory Orders Medication Instructions Recorded Confirmed Sertraline [Zoloft] 50 mg PO DAILY 05/24/23 05/24/23 - Allergies Allergies/Adverse Reactions: Allergies Allergy/AdvReac Type Severity Reaction Status Date / Time No Known Drug Allergies Allergy Verified 05/24/23 10:51 - Social History Does the pt smoke?: No Smoking Status: Never smoker Does the pt drink ETOH?: No Does the pt have substance abuse?: No - Immunizations Immunizations are current?: Yes PD ED PE NORMAL - Vitals Vital signs reviewed: Yes - General General: Alert and oriented X 3, No acute distress, Well developed/nourished - HEENT HEENT: PERRL, EOMI, Other (base of nose with tenderness and mild swelling, but feels midline and the nasal/alar bones feel in symmetric position. Nasal septum without bleeding nor hematoma. ) Results - Vitals Vitals: Oxygen O2 Source Room air PD Medical Decision Making - ED course Complexity details: considered differential (the bones look in line. Mild swelling more to the left. No septal hamatoma. Discussed with her the common approach of just waiting to see how it is when swelling goes down. Offered Xray but did not feel it needed CT right off. Deferred imaging for now. ), d/w patient Departure - Departure Disposition: 01 Home, Self Care Clinical Impression: Nasal contusion Condition: Stable Record reviewed to determine appropriate education?: Yes Instructions: ED Contusion Nasal Vs Fx No X Ray Follow-Up: Sunday Buck ARNP [Primary Care Provider] - Jose Toledo DDS [Provider Admit Priv/Credential] - Comments: Your nose has some swelling to it. The main nasal passage and septum appear normal to my view and the bones feel in place at this time. The common approach currently is to not necessarily x-ray these but give it time and see how breathing ability and appearance are. If they seem off after a week or so with time for swelling to go down, then follow-up with the maxillofacial or market research lead. The more appropriate imaging if there is concern would be a CT scan for showing the deeper bones and turbinates as well. At this point I think this will heal okay and appear normal. If there does seem to be concern then provided the name for Jose Toledo who is a maxillofacial surgeon in [place]. Call and follow-up there if persistent concern. Discharge Date/Time: 05/24/23 11:34
--- OUTSIDE RECORDS SUMMARY | 2023-05-24 11:33 | EXTERNAL MEDICAL SUMMARY RPT | Continuity of Care Document ---
Author Name Unknown Address [address] [place] [address] Phone Organization [facility] Address [address] [place] [address] Phone Care Team Providers Care [employer] Counselor Name Role Phone Sunday Buck Unavailable Unavailable Medications date description facility 2023-03-13 00:00 [facility] Results/Labs test date facility value unit notes Social History date description facility 2023-03-13 00:00 Never smoked tobacco ([facility]
== END 2023-05-24 11:34 | disposition home or self-care (01) ==
LOC: ED 10:42
DX: S00.33XA Contusion of nose, initial encounter (principal); W50.0XXA Accidental hit or strike by another person, initial encounter
CPT/HCPCS: 99281; 99283

== ENCOUNTER 2023-09-11 09:35 | Emergency (ER) | payer OTHER ==
[2023-09-11 09:46] VITALS: BP 128/83; O2SAT 100
--- NOTE | 2023-09-11 10:19 | XRAY Report ---
PROCEDURE: Knee 4 View RT INDICATIONS: Trauma TECHNIQUE: 4 views of the right knee(s) were acquired. COMPARISON: None. FINDINGS: Bones: No fractures. Mild lateral subluxation of the patella on the sunrise view. No suspicious bony lesions. Soft tissues: Moderate knee joint effusion. No suspicious soft tissue calcifications or masses. IMPRESSION: Moderate knee joint effusion. Mild lateral subluxation of the patella on the sunrise view, without fr ank dislocation. Reviewed by: Francisco Finch on 09/11/2023 10:18 AM PDT Approved by: Francisco Finch on 09/11/2023 10:18 AM PDT Station ID: [id number]
--- NOTE | 2023-09-11 11:06 | ED Physician Documentation ---
PD HPI LOWER EXT INJURY - Stated complaint Stated Complaint: RT KNEE INJ - Chief complaint Chief Complaint: Trauma Ext - History obtained from History obtained from: Patient - History of Present Illness PD HPI LOW EXT INJURY LOCATION: Right, Knee Type of injury: Twist Where injury occurred: Home Timing - onset: Yesterday (morning) Timing - duration: Days (1) Timing - details: Abrupt onset, Still present Improved by: Rest, Immobilization Worsened by: Moving, Palpating, Other (weight bearing) Associated symptoms: No: Weakness, Numbness, Swelling Contributing factors: Other (elers danlose) Similar symptoms before: Diagnosis (patellar dislocation) Recently seen: Not recently seen - Additional information Additional information: Diamond Rivera is a 32-year-old 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 She has severe pain associated with this. She has not usually had significant pain following this type of dislocation. Review of Systems Constitutional: denies: Fever Ears: denies: Ear pain Nose: denies: Congestion Throat: denies: Sore throat Respiratory: denies: Cough GI: denies: Nausea, Vomiting, Diarrhea PD PAST MEDICAL HISTORY - Past Medical History Cardiovascular: None Respiratory: None Neuro: None Endocrine/Autoimmune: None GI: GERD : None Psych: Depression Musculoskeletal: None Derm: None - Past Surgical History Past Surgical History: Yes HEENT: Other - Present Medications Home Medications: Ambulatory Orders Medication Instructions Recorded Confirmed DULoxetine [Cymbalta] 60 mg PO DAILY 09/11/23 09/11/23 - Allergies Allergies/Adverse Reactions: Allergies Allergy/AdvReac Type Severity Reaction Status Date / Time No Known Drug Allergies Allergy Verified 09/11/23 09:46 - Social History Does the pt smoke?: No Smoking Status: Never smoker Does the pt drink ETOH?: No Does the pt have substance abuse?: No - Immunizations Immunizations are current?: Yes PD ED PE NORMAL - Vitals Vital signs reviewed: Yes (Tachycardic and hypertensive) - General General: Alert and oriented X 3, No acute distress, Well developed/nourished - HEENT HEENT: Atraumatic, PERRL, EOMI - Respiratory Respiratory: No respiratory distress - Derm Derm: Normal color, Warm and dry, No rash - Extremities Extremities: No deformity, No edema, Other (There is point tenderness to the medial joint line on the right knee there is pain to flexion extension of the knee and there is no significant pain to palpation of the patella or movement of the patella.) - Neuro Neuro: Alert and oriented X 3, electronic parts designer 2-12 intact, No motor deficit, No sensory deficit, Normal speech Eye Opening: Spontaneous Motor: Obeys Commands Verbal: Oriented GCS Score: 15 - Psych Psych: Normal mood, Normal affect Results - Vitals Vitals: Vital Signs - 24 hr 09/11/23 09:41 Temperature 37.2 C Heart Rate 109 H Respiratory 15 Rate Blood Pressure 128/83 H O2 Saturation 100 Oxygen O2 Source Room air - Rads (name of study) knee R Relevant Findings:: Prelim report reviewed (Impression: Moderate knee joint effusion. Mild lateral subluxation of the patella on the sunrise view, without oleksandr dislocation.), EMP independent interpretation of test PD Medical Decision Making - ED course Complexity details: reviewed results, re-evaluated patient, considered differential, d/w patient ED course: 32-year-old female with a frequently dislocating right patella has a history of Jamia-Danlos and today she is in the emergency department after a dislocation has left her with significant pain in her knee. She does have an effusion on plain film and this is likely the reason the patient is experiencing so much pain with weightbearing. We have placed patient into a knee immobilizer and onto crutches and I have recommended that she follow-up with orthopedics about this as there may be some procedure available to stop this from happening in as frequently. Departure - Departure Disposition: 01 Home, Self Care Clinical Impression: Closed patellar dislocation Qualifiers: Encounter type: initial encounter Laterality: right Qualified Code(s): S83.004A - Unspecified dislocation of right patella, initial encounter Condition: Stable Instructions: ED Dislocation Patella Follow-Up: Sunday Buck ARNP [Primary Care Provider] - Anup Garcia MD [Provider Admit Priv/Credential] - Comments: Diamond, today it looks like you have had a dislocation of the patella and it is still resting abnormally. There is a joint effusion or blood in the joint space and this will be painful to bear weight on. Our recommendation today is to use the immobilizer and crutches and follow-up with the orthopedic surgeon for further evaluation. Discharge Date/Time: 09/11/23 14:04
== END 2023-09-11 14:04 | disposition home or self-care (01) ==
LOC: ED 09:35
DX: S83.004A Unspecified dislocation of right patella, initial encounter (principal); X58.XXXA Exposure to other specified factors, initial encounter
CPT/HCPCS: 99283; 99284